=== PATIENT | male | born 1975 | race American Indian/Alaskan Native ===

== ENCOUNTER 2017-06-25 22:14 | Emergency (ER) | payer SELFPAY ==
[2017-06-26 00:19] LABS: Basophils % (Auto) 0.4 % (0.0-1.8); Eosinophils % (Auto) 0.2 % (0.0-4.3); Hematocrit 41.8 % (35.5-45.6); Hemoglobin 13.6 gm/dl (11.8-15.2); Mean Corpuscular HGB Conc 33 % (32-34); Mean Corpuscular Hemoglobin 32 pg (28-32); Mean Corpuscular Volume 98 fl (84-94); Platelet Count 175 K/mm3 (140-440); Red Blood Count 4.28 M/mm3 (3.65-5.03); White Blood Count 8.1 K/mm3 (4.5-11.0)
[2017-06-26 00:40] LABS: Creatine Kinase MB 3.6 ng/mL (0.0-4.0)
[2017-06-26 00:43] LABS: Anion Gap 23 mmol/L; BUN/Creatinine Ratio 14.28; Blood Urea Nitrogen 10 mg/dL (9-20); Calcium 8.9 mg/dL (8.4-10.2); Carbon Dioxide 20 mmol/L (22-30); Chloride 98.3 mmol/L (98-107); Creatine Kinase 894 units/L (55-170); Glucose 73 mg/dL (75-100); Potassium 3.9 mmol/L (3.6-5.0); Sodium 137 mmol/L (137-145)
[2017-06-26 00:50] LABS: Erythrocyte Sedimentation Rate 1 mm/Hr (0-20)
[2017-06-26] MEDS ORDERED: DECADRON IM ONE (07:48)
[2017-06-26] MEDS ORDERED: NORCO 5/325 PO ONE (07:48)
[2017-06-26] MEDS ORDERED: FLEXERIL PO ONE (07:49)
[2017-06-26 08:44] VITALS: BP 135/62
--- NOTE | 2017-06-26 08:49 | Emergency Department Report ---
ED General Adult HPI - General Chief complaint: Extremity Problem,Nontraumatic Stated complaint: RIGHT LEG PAIN Source: patient Mode of arrival: Ambulatory Limitations: No Limitations - History of Present Illness Initial comments: 41 year old male presents to ED with chronic leg pain x6 months. patient states pain in mostly in anterior thigh and hip. patient is ambulatory, stable, neurologically intact and in no acute distress. patient denies recent injury/ trauma. patient denies hx of blood clots, recent travel, recent surgeries. patient has had blood work ordered in triage prior to being seen by provider. patient states he came to ED to see if he could get something for pain. patient also states he smokes cigarettes daily and consumes alcohol daily. -: Gradual (chronic), month(s) (6) Location: lower extremity Severity scale (0 -10): 0 Quality: aching Consistency: constant Improves with: none Worsens with: movement Associated Symptoms: denies other symptoms. denies: confusion, chest pain, cough, fever/chills, headaches, nausea/vomiting, rash, seizure, shortness of breath, syncope, weakness - Related Data Previous Rx's Medication Instructions Recorded Last Taken Type HYDROcodone/APAP 5-325 [Orla 1 each PO Q6HR PRN #14 tablet 05/12/14 Unknown Rx 5-325 mg TAB] Ibuprofen [Motrin] 800 mg PO Q8H PRN #14 tablet 05/12/14 Unknown Rx Azithromycin [Zithromax] 1 gm PO ONCE #1 packet 05/20/14 Unknown Rx Meloxicam [Mobic] 7.5 mg PO QDAY #5 tablet 06/26/17 Unknown Rx methOCARBAMOL [Robaxin TAB] 500 mg PO TID #15 tab 06/26/17 Unknown Rx Allergies Allergy/AdvReac Type Severity Reaction Status Date / Time No Known Allergies Allergy Unverified 05/12/14 11:54 ED Review of Systems ROS: Stated complaint: RIGHT LEG PAIN Other details as noted in HPI Constitutional: denies: chills, fever Eyes: denies: eye pain, eye discharge, vision change ENT: denies: ear pain, throat pain Respiratory: denies: cough, shortness of breath, wheezing Cardiovascular: denies: chest pain, palpitations Endocrine: no symptoms reported Gastrointestinal: denies: abdominal pain, nausea, diarrhea Genitourinary: denies: urgency, dysuria Musculoskeletal: arthralgia. denies: back pain, joint swelling Skin: denies: rash, lesions Neurological: denies: headache, weakness, numbness, paresthesias, confusion, abnormal gait, vertigo Psychiatric: denies: anxiety, depression Hematological/Lymphatic: denies: easy bleeding, easy bruising ED Past Medical Hx - Past Medical History Previous Medical History?: Yes Additional medical history: Chronic Rt leg pain - Surgical History Past Surgical History?: No - Social History Smoking Status: Current Every Day Smoker Substance Use Type: Alcohol - Medications Home Medications: Home Medications Medication Instructions Recorded Confirmed Last Taken Type HYDROcodone/APAP 5-325 [Orla 1 each PO Q6HR PRN #14 tablet 05/12/14 Unknown Rx 5-325 mg TAB] Ibuprofen [Motrin] 800 mg PO Q8H PRN #14 tablet 05/12/14 Unknown Rx Azithromycin [Zithromax] 1 gm PO ONCE #1 packet 05/20/14 Unknown Rx Meloxicam [Mobic] 7.5 mg PO QDAY #5 tablet 06/26/17 Unknown Rx methOCARBAMOL [Robaxin TAB] 500 mg PO TID #15 tab 06/26/17 Unknown Rx ED Physical Exam - General Limitations: No Limitations General appearance: alert, in no apparent distress - Head Head exam: Present: atraumatic, normocephalic - Eye Eye exam: Present: normal appearance, EOMI - ENT ENT exam: Present: mucous membranes moist - Neck Neck exam: Present: normal inspection - Respiratory Respiratory exam: Present: normal lung sounds bilaterally. Absent: respiratory distress, wheezes, rales, rhonchi, chest wall tenderness - Cardiovascular Cardiovascular Exam: Present: regular rate, normal rhythm - GI/Abdominal GI/Abdominal exam: Present: soft, normal bowel sounds. Absent: distended, tenderness, guarding - Rectal Rectal exam: Present: deferred - Extremities Exam Extremities exam: Present: normal inspection, full ROM. Absent: tenderness - Back Exam Back exam: Present: normal inspection, full ROM. Absent: tenderness - Neurological Exam Neurological exam: Present: alert, oriented X3, normal gait - Psychiatric Psychiatric exam: Present: normal affect, normal mood - Skin Skin exam: Present: warm, dry, intact, normal color. Absent: rash ED Course Vital Signs 06/26/17 06/26/17 06/26/17 00:38 08:06 08:43 Temperature 98.5 F 98.2 F Pulse Rate 60 71 Respiratory 18 18 16 Rate Blood Pressure 130/93 135/62 [Right] O2 Sat by Pulse 100 100 Oximetry ED Medical Decision Making - Lab Data Result diagrams: 06/25/17 23:44 06/25/17 23:44 - Medical Decision Making 41 year old male presents to ED with chronic leg pain over 6 months. patient is stable, neurologically intact and in no acute distress. patient has decreased pain after medications during ED visit. Critical care attestation.: If time is entered above; I have spent that time in minutes in the direct care of this critically ill patient, excluding procedure time. ED Disposition Clinical Impression: Chronic pain Qualifiers: Chronic pain type: chronic pain syndrome Qualified Code(s): G89.4 - Chronic pain syndrome Disposition: - TO HOME OR SELFCARE Is pt being admited?: No Does the pt Need Aspirin: No Condition: Stable Prescriptions: Meloxicam [Mobic] 7.5 mg PO QDAY #5 tablet methOCARBAMOL [Robaxin TAB] 500 mg PO TID #15 tab Referrals: TATIANNA JIMENEZ MD [Primary Care Provider] - 3-5 Days TATYANA SILVA MD [Staff Physician] - 3-5 Days KEVIN LESTER MD [Staff Physician] - 3-5 Days
== END 2017-06-26 08:43 | disposition home or self-care (01) ==
LOC: ED 22:14
DX: M79.604 Pain in right leg (principal); G89.4 Chronic pain syndrome; F17.200 Nicotine dependence, unspecified, uncomplicated
CPT/HCPCS: 36415; 80048; 82550; 82553; 83880; 85025; 85652; 86140; 96372; 99283; J1100